=== PATIENT | male | born 1980 | race Caucasian/White ===

== ENCOUNTER 2017-02-09 22:08 | Emergency (ER) | payer SELFPAY ==
[2017-02-09 22:49] VITALS: BP 141/81
--- NOTE | 2017-02-09 23:06 | ER Document Report ---
HPI - HPI Pain Level: 5 Notes: Patient is a 36-year-old male with no significant past medical history presents the ED complaining of left jaw swelling and dental pain #193 days. Patient has not noticed any obvious discharge. Patient has been using Motrin and ice with minimal relief. He is still eating and drinking without difficulties. He denies any recent illness, drooling, or trouble swallowing. He has not had any hoarseness. Denies any headache, fever, head injury, neck pain, URI, sore throat, chest pain, palpitations, syncope, cough, shortness of breath, wheeze, dyspnea, abdominal pain, nausea/vomiting/diarrhea, urinary retention, dysuria, hematuria, or rash. - ROS Notes: REVIEW OF SYSTEMS: CONSTITUTIONAL : Denies fever, chills, or sweats. Denies recent illness. EENT: see hpi CARDIOVASCULAR: Denies chest pain. Denies palpitations or racing or irregular heart beat. RESPIRATORY: Denies cough, cold, or chest congestion. Denies shortness of breath, difficulty breathing, or wheezing. GASTROINTESTINAL: Denies abdominal pain or distention. Denies nausea, vomiting , or diarrhea. GENITOURINARY: Denies difficulty urinating, painful urination, burning, frequency, blood in urine, or discharge. MUSCULOSKELETAL: Denies back or neck pain or stiffness. Denies joint pain or swelling. SKIN: Denies rash, lesions or sores. NEUROLOGICAL: Denies confusion or altered mental status. Denies passing out or loss of consciousness. Denies dizziness or lightheadedness. Denies headache. Denies weakness or paralysis or loss of use of either side. Denies problems with gait or speech. Denies sensory loss, numbness, or tingling. ALL OTHER SYSTEMS REVIEWED AND NEGATIVE. Dictation was performed using [employer] voice recognition software Past Medical History - Social History Smoking Status: Current Every Day Smoker Family History: Reviewed & Not Pertinent Patient has suicidal ideation: No Patient has homicidal ideation: No Renal/ Medical History: Denies: Hx Peritoneal Dialysis - Immunizations Hx Diphtheria, Pertussis, Tetanus Vaccination: No Vertical Provider Document - CONSTITUTIONAL Agree With Documented VS: Yes Notes: PHYSICAL EXAMINATION: GENERAL: Well-appearing, well-nourished and in no acute distress. HEAD: Atraumatic, normocephalic. EYES: Pupils equal round and reactive to light, extraocular movements intact, sclera anicteric, conjunctiva are normal. ENT: EAC clear b/l. TM's intact b/l without erythema, fluid, or perforation. Nares patent and without discharge. oropharynx clear without exudates. No tonsilar hypertrophy or erythema. Moist mucous membranes. No sinus tenderness. Uvula midline. No palatine shift. No tongue protrusion. No respiratory compromise. No drooling or hoarseness. Mouth: Poor dentition. + decay and mild gingivitis. + abscess noted to the outside gumline of tooth #19. + left jaw swelling. + tenderness to tooth #19. NECK: Normal range of motion, supple without lymphadenopathy. No rigidity/ meningismus. LUNGS: Breath sounds clear to auscultation bilaterally and equal. No wheezes rales or rhonchi. HEART: Regular rate and rhythm without murmurs, rubs, gallops. NEUROLOGICAL: Cranial nerves grossly intact. Normal speech, normal gait. Normal sensory, motor exams PSYCH: Normal mood, normal affect. SKIN: Warm, Dry, normal turgor, no rashes or lesions noted. - RESPIRATORY O2 Sat by Pulse Oximetry: 99 Course - Re-evaluation Re-evalutation: 02/10/17 00:23 Patient is an afebrile, well-hydrated, 36-year-old male who presents the ED with dental abscess tooth pain. Vitals are stable. PE is otherwise unremarkable. Incision and drainage was performed successfully without any complications and wound cultures pending. Patient was given morphine IR 15 mg p.o. tonight as well as 1 dose of his clindamycin. Low suspicion for any meningitis, sepsis, peritonsillar/pharyngeal abscess, respiratory compromise, Nate's, temporal arteritis, or other emergent systemic condition at this time. Patient is aware this condition can change from initial presentation and he needs to monitor symptoms closely. I will send him home with a prescription for clindamycin and viscous lidocaine. Conservative measures otherwise for symptoms. Call to schedule an appointment with a dentist for further evaluation and management. Recheck with your PCM this week as well. Return to the ED with any worsening/concerning symptoms otherwise as reviewed in discharge. Patient is in agreement. - Vital Signs Vital signs: Temp Pulse Resp BP Pulse Ox 98.2 F 94 16 141/81 H 99 02/09/17 22:48 02/09/17 22:48 02/09/17 22:48 02/09/17 22:48 02/09/17 22:48 Procedures - Incision and Drainage Left Face Time completed: 00:20 Type: Simple Anesthetic type: 1% Lidocaine mL's of anesthetic: 2 Blade size: 11 I&D procedure: Other - saline Incision Method: Incision made by scalpel Amount/type of drainage: moderate purulent material Notes: 02/09/17 00:20 Incision and drainage procedure, risks, benefits reviewed with the patient. Verbal and written consent obtained. Sterile technique utilized. The area was extensively cleansed utilizing saline. A 1.5" 25-gauge needle was utilized to anesthetize the area using 2 mL's of 1% lidocaine without epinephrine. Once adequate anesthesia was provided, a #11 scalpel was utilized to make a 0.5 cm incision at the site of the abscess. Moderate amounts of purulent material was expressed. Wound culture obtained. Patient tolerated procedure well. No complications. Discharge - Discharge Clinical Impression: Toothache, Dental abscess Condition: Stable Disposition: HOME, SELF-CARE Instructions: [facility], Clindamycin ([facility]), Dentist, Toothache ( [facility]), Abscess ([facility]), Post Incision and Drainage Additional Instructions: Perry and floss twice daily Maintain fluid intake Take antibiotics as directed Mouthwash, salt water gargles, peroxide rinse as needed Tylenol/ibuprofen as needed Recheck with PCM this week Call today/tomorrow and schedule an appointment with your dentist for further evaluation Return to the ED with any worsening symptoms and/or development of fever, headache, facial swelling, swelling of lips/tongue/throat, trouble swallowing, drooling, hoarseness, neck pain/stiffness, chest pain, palpitations, syncope, shortness of breath, trouble breathing, abdominal pain, n/v/d, numbness/tingling , or other worsening symptoms that are concerning to you. Forms: Elevated Blood Pressure Referrals: [facility] [Provider Group] - Follow up in 1 week
[2017-02-10] MEDS ORDERED: MORPHINE SULFATE IR 15 MG TABLET PO ONE (00:22)
[2017-02-10] MEDS ORDERED: CLINDAMYCIN HCL 150 MG CAPSULE PO ONE (00:22)
[2017-02-10] MEDS ORDERED: LIDOCAINE 2% VISCOUS SOLN 20 ML UDCUP PO ONE (00:29)
== END 2017-02-10 00:50 | disposition home or self-care (01) ==
LOC: ER 22:08
DX: K04.7 Periapical abscess without sinus (principal); K02.9 Dental caries, unspecified; K05.10 Chronic gingivitis, plaque induced; K08.89 Other specified disorders of teeth and supporting structures; F17.200 Nicotine dependence, unspecified, uncomplicated
CPT/HCPCS: 99283; 87070; 87205; 41800; J3490

== ENCOUNTER 2017-11-27 22:27 | Emergency (ER) | payer SELFPAY ==
[2017-11-27] MEDS ORDERED: NAPROXEN 250 MG TABLET PO ONE (23:56)
--- NOTE | 2017-11-27 23:57 | ER Document Report ---
ED General - General Chief Complaint: Rib Pain Stated Complaint: CHEST PAIN Time Seen by Provider: 11/27/17 23:48 Notes: Patient is a 37-year-old male that presents to the emergency department for chief complaint of rib pain after fall. Patient states that 2 days ago he slipped on his deck, and landed on the right side of his chest wall. He states that since that time is been having pain, worse with deep breathing. And tender to push over the area. Denies noting any bruising. He did not have any other injuries, did not hit his head or lose consciousness. Denies having any neck pain or neck injury. Denies any numbness, weakness, tingling in any extremity. He also denies having any nausea, vomiting, abdominal pain, dysuria or hematuria. Past Medical History: Denies chronic medical conditions Past Surgical History: Denies surgical history Social History: Admits to smoking cigarettes daily, and denies alcohol or drug use Family History: Reviewed and noncontributory for presenting illness Allergies: Reviewed, see documented allergy list. REVIEW OF SYSTEMS: Unless otherwise stated in this report the patient's positive and negative responses for review of systems for constitutional, eyes, ENT, cardiovascular, respiratory, gastrointestinal, neurological, genitourinary, musculoskeletal, and integumentary systems and related systems to the presenting problem are either as stated in the HPI or were not pertinent or were negative for the symptoms and/or complaints related to the presenting medical problem. PHYSICAL EXAMINATION: Vital signs reviewed, nursing noted reviewed. GENERAL: Well-appearing, well-nourished and in no acute distress. HEAD: Atraumatic, normocephalic. EYES: Eyes appear normal, extraocular movements intact, sclera anicteric, conjunctiva are normal. ENT: nares patent, oropharynx clear without exudates. Moist mucous membranes. NECK: Normal range of motion, supple without lymphadenopathy, no midline tenderness LUNGS: Breath sounds clear to auscultation bilaterally and equal. No wheezes rales or rhonchi. There is tenderness to palpation over the right anterior lateral ribs, mainly over ribs 7 through 9, no deformity, flail chest, or ecchymosis noted. HEART: Regular rate and rhythm without murmurs ABDOMEN: Soft, nontender, normoactive bowel sounds. No rebound, guarding, or rigidity. No masses appreciated. Back: No midline tenderness to the thoracic or lumbar spine, no paraspinal tenderness. EXTREMITIES: Nontender, good range of motion, no pitting or edema. NEUROLOGICAL: No focal neurological deficits. Moves all extremities spontaneously Motor and sensory grossly intact on exam. PSYCH: Normal mood, normal affect. SKIN: Warm, Dry, normal turgor, no rashes or lesions noted on exposed skin TRAVEL OUTSIDE OF THE [place] IN LAST 30 DAYS: No - Related Data Allergies/Adverse Reactions: Penicillins Allergy (Verified 02/09/17 22:36) Past Medical History - Social History Smoking Status: Current Every Day Smoker Family History: Reviewed & Not Pertinent Renal/ Medical History: Denies: Hx Peritoneal Dialysis - Immunizations Hx Diphtheria, Pertussis, Tetanus Vaccination: No Physical Exam - Vital signs Vitals: Temp Pulse BP Pulse Ox 97.4 F 83 134/80 H 99 11/27/17 23:04 11/27/17 23:04 11/27/17 23:04 11/27/17 23:04 Course - Re-evaluation Re-evalutation: Patient seen and examined vital signs reviewed. Patint was evaluated and treated as appropriate for the patient's presenting symptoms and complaint, with consideration of any critical or life threatening conditions that may be associated with their obtained history and exam as noted above. Patient was treated with naproxen 500 mg p.o. and Lidoderm patch The patient was re-evaluated and was improved Evaluation was most consistent with rib contusion and eighth rib fracture, will discharge the patient home with a [employer] dispense pack of 6 tablets, and given a prescription for naproxen, is also given a work note. Plan of care was discussed with the patient at this point, after careful consideration I feel that that patient can be discharged from the emergency department, the patient was educated treatments and reasons to return to the emergency department based on their presumed diagnosis as noted above, they were advised to followup with a primary care physician in 2-3 days. Patient was agreeable to plan of care. *Note is created using voice recognition software and may contain spelling, syntax or grammatical errors. Ribs w/Chest X-Ray 11/27/17 23:55 IMPRESSION: 1. Nondisplaced fracture of the anterolateral right eighth rib. 2. No evidence of acute intrathoracic disease. - Vital Signs Vital signs: Temp Pulse Resp BP Pulse Ox 97.4 F 83 134/80 H 99 11/27/17 23:04 11/27/17 23:04 11/27/17 23:04 11/27/17 23:04 - EKG Interpretation by Me Additional EKG results interpreted by me: EKG demonstrates normal sinus rhythm with a ventricular rate of 70 bpm, normal axis, normal intervals, no evidence of acute ischemia in this EKG. Discharge - Discharge Clinical Impression: Rib fracture Qualifiers: Encounter type: initial encounter Rib fracture type: single rib Fracture type: closed Laterality: right Qualified Code(s): S22.31XA - Fracture of one rib, right side, initial encounter for closed fracture Condition: Stable Disposition: HOME, SELF-CARE Instructions: Rib Injuries and Fractures ([facility]) Additional Instructions: Please return to the emergency department if you have any worsening, or concern of your symptoms. Please return to the emergency department if you develop chest pain, difficulty breathing, severe abdominal pain, or ongoing vomiting. Please follow-up with your primary care physician in 2-3 days and any other recommended physicians. If prescribed, take all medications as directed. If you have any questions or concerns do not hesitate to return the emergency department for evaluation. Prescriptions: Naproxen [Naprosyn] 500 mg PO Q12 PRN #30 tablet PRN Reason: rib pain
[2017-11-28] MEDS ORDERED: LIDOCAINE 5% (700 MG) TRANSDERMAL ADH..PATCH TP ONE (00:43)
--- NOTE | 2017-11-28 01:22 | RADIOLOGY REPORT (SQ) ---
CLINICAL INDICATION: 37-year-old male with right mid anterior rib pain. TECHNICAL DATA: Three x-ray views of the right sided ribs were performed as well as a PA chest. Images were obtained on 11/28/2017 at 1:22 AM FINDINGS: Three views of the right-sided ribs were performed and reveal a nondisplaced fracture of the anterolateral right eighth rib. No focal lytic or sclerotic bone lesions are identified. No definite pneumothorax is seen. No definite soft tissue abnormalities are identified. The lungs are well expanded and clear. The cardiac silhouette and pulmonary vascularity are within normal limits. IMPRESSION: 1. Nondisplaced fracture of the anterolateral right eighth rib. 2. No evidence of acute intrathoracic disease.
[2017-11-28] MEDS ORDERED: HYDROCODONE/ACETAMINOPHEN 5-325 MG (6 TAB/ER DISP) PO PRN (01:53)
[2017-11-28 02:23] VITALS: BP 114/81
--- NOTE | 2017-11-28 13:48 | EKG REPORT ---
SEVERITY:- BORDERLINE ECG - SINUS RHYTHM BORDERLINE INFERIOR Q WAVES : Confirmed by: Parvin Barton MD 28-Nov-2017 13:46:20
== END 2017-11-28 02:29 | disposition home or self-care (01) ==
LOC: ER 22:27
DX: S22.31XA Fracture of one rib, right side, initial encounter for closed fracture (principal); W01.0XXA Fall on same level from slipping, tripping and stumbling without subsequent striking against object, initial encounter; F17.210 Nicotine dependence, cigarettes, uncomplicated
CPT/HCPCS: 93005; 93010; 99284